=== PATIENT | female | born 1980 ===

== ENCOUNTER → 2017-05-29 | Outpatient (CLI) | payer BC ==
[~2017-05-29] MED LIST: BCP; BUTASPCAF PO; HYDR1TAB94 PO; METF500 PO; NITR100 PO; Necon1 EAC2 PO; PROM25 PO; Pyridium100 MG PO; SPIR25 PO; SPIR50 PO; TAMS.4ER PO; TOPI15C PO; TOPI25
[2017-05-30 02:56] LABS: Source Cervix
== END | disposition home or self-care (01) ==
LOC: LAB SHORT 12:00 → LAB 12:00
PROVIDERS: Nurse Practitioner
DX: Z01.419 Encounter for gynecological examination (general) (routine) without abnormal findings (principal)
CPT/HCPCS: G0145

== ENCOUNTER 2017-11-27 07:34 | Day surgery (SDC) | payer OTHER, BC ==
[~2017-11-27] VITALS: Ht 160 cm; Wt 74.8 kg
[2017-11-27] MEDS ORDERED: Inderal40 MG (08:09)
[2017-11-27] MEDS ORDERED: TRAZ50 (08:10)
== END 2017-11-27 09:33 | disposition home or self-care (01) ==
LOC: ORSCSDS 07:34
DX: R19.7 Diarrhea, unspecified (principal); K63.5 Polyp of colon; K64.8 Other hemorrhoids; K62.5 Hemorrhage of anus and rectum; K58.9 Irritable bowel syndrome, unspecified; Z79.899 Other long term (current) drug therapy
CPT/HCPCS: J0330; J1980; J2405; J7120

== ENCOUNTER → 2018-08-12 | Outpatient (CLI) | payer OTHER, BC ==
[~2018-08-12] MED LIST changes: +Inderal40 MG; +TRAZ50
== END | disposition home or self-care (01) ==
LOC: LAB SHORT 14:47 → LAB 14:47
PROVIDERS: Nurse Practitioner
DX: Z01.419 Encounter for gynecological examination (general) (routine) without abnormal findings (principal)
CPT/HCPCS: G0145